=== PATIENT | female | born 1980 | race Caucasian/White ===

== ENCOUNTER → 2019-03-23 | Outpatient (CLI) | payer BC ==
[~2019-03-23] MED LIST: ACHYD1T PO; ALPR.25T PO; ALPR0.5T7 PO; ALPR1T PO; HYDR118S PO; HYDR473S16 PO; IBUP-1780 PO; Ibuprofen PO; LORA-794 PO; METF-397 PO; OMEP20CA6 PO; OXYC-465 PO; OXYC1TAB12 PO; PRD10T PO; PRD20T PO; PREN1TAB14 PO; PROP1TAB77; TRAM50TA2 PO
--- NOTE | 2019-03-23 12:44 | Diagnostic Imaging Report ---
INDICATION: Right wrist pain. COMPARISON: None available. TECHNIQUE: 3 views of right wrist were obtained. FINDINGS: No acute or healing fracture. No osteonecrosis of the lunate. Joint spaces are well-preserved. No abnormal soft tissue mineralizations. No radiopaque foreign body. IMPRESSION: Normal right wrist radiographs. Dictated by: Dictated on workstation # [id number]
--- NOTE | 2019-03-23 12:44 | Diagnostic Imaging Report ---
Indication: Injury to right thumb. AP, oblique, lateral views of the right hand are obtained. No fracture or acute bony abnormality is seen. Joint spaces are unremarkable. Impression: Negative right hand. Dictated by: Dictated on workstation # [id number]
== END ==
LOC: RAD 09:35
PROVIDERS: ATTEND Nurse Practitioner Family
DX: S69.91XA Unspecified injury of right wrist, hand and finger(s), initial encounter (principal)
CPT/HCPCS: 73110; 73130

== ENCOUNTER → 2023-06-18 | Outpatient (CLI) | payer BC ==
[~2023-06-18] MED LIST changes: -OXYC-465 PO; +OXYC-556 PO
--- NOTE | 2023-06-18 15:51 | Diagnostic Imaging Report ---
INDICATION: ACUTE HIP PAIN COMPARISON: None. FINDINGS: Two views of the left hip were obtained and show no fractures, dislocations, or other acute bony abnormalities. Joint spaces are well maintained throughout. The soft tissues appear unremarkable. No unexpected radiopaque foreign bodies are identified. IMPRESSION: Unremarkable radiographic exam of the left hip. Dictated by: Dictated on workstation # [id number]
== END ==
LOC: RAD 12:04
PROVIDERS: ATTEND Family Medicine
DX: M25.552 Pain in left hip (principal)
CPT/HCPCS: 73502